=== PATIENT | male | born 1935 | race Caucasian/White ===

== ENCOUNTER 2024-10-21 21:20 | Inpatient (IN) | payer BC ==
[~2024-10-21] VITALS: Ht 188 cm; Wt 84.1 kg
[2024-10-21 21:42] LABS: BASOPHILS % (AUTO) 0.2 % (0-1); EOSINOPHILS % (AUTO) 0 % (0-6); HEMATOCRIT 33.6 % (42.0-52.0); HEMOGLOBIN 11.1 g/dl (14.0-17.9); LYMPHOCYTES # (AUTO) 0.6 X10'3 (1.1-4.8); LYMPHOCYTES % (AUTO) 4.5 % (21-51); MEAN CORPUSCULAR HEMOGLOBIN 29.4 PG (27.0-31.0); MEAN CORPUSCULAR HGB CONC 33.2 g/dL (33.0-36.5); MEAN CORPUSCULAR VOLUME 88.6 FL (78-98); MEAN PLATELET VOLUME 6.9 FL (7.4-10.4); MONOCYTES % (AUTO) 7.2 % (2-12); NEUTROPHILS # (AUTO) 12.8 X10'3 (1.8-7.7); NEUTROPHILS % (AUTO) 88.1 % (42-75); PLATELET COUNT 355 X10'3 (140-440); RED BLOOD COUNT 3.79 X10'6 (4.70-6.10); RED CELL DISTRIBUTION WIDTH 19.3 % (11.5-14.5); WHITE BLOOD COUNT 14.5 X10'3 (4.5-11.0)
[2024-10-21] MEDS: normal saline 1000ml 1,000 ML IV ONE (21:49)
[2024-10-21 21:54] LABS: ALANINE AMINOTRANSFERASE 18 U/L (12-78); ALBUMIN 2.1 G/DL (3.4-5.0); ALBUMIN/GLOBULIN RATIO 0.4 (1.1-1.5); ALKALINE PHOSPHATASE 161 IU/L (46-116); ANION GAP 12 (8-16); ASPARTATE AMINO TRANSFERASE 19 U/L (10-37); BILIRUBIN,TOTAL 1.2 MG/DL (0.1-1.0); BLOOD UREA NITROGEN 6 MG/DL (7-18); BUN/CREATININE RATIO 5.2 (10.0-20.0); CALCIUM 8.7 MG/DL (8.5-10.1); CHLORIDE 97 MMOL/L (99-107); CREATININE 1.15 MG/DL (0.60-1.10); GLUCOSE 159 MG/DL (70-104); POTASSIUM 3.8 MMOL/L (3.5-5.1); SODIUM 134 MMOL/L (135-145); TOTAL CARBON DIOXIDE 25.4 MMOL/L (24-32); eCRCL 49 ML/MIN; eGFR 60 ML/MIN
[2024-10-21] MEDS: haloperidol lactate 5mg/ml inj IM ONE (22:07)
[2024-10-21] MEDS: CefTRIAXone/D5W-Rocephin 1gm 50 ML IV ONE (22:43)
[2024-10-22 00:38] LABS: BILIRUBIN,URINE NEGATIVE (Neg); CLARITY,URINE CLEAR (Clear); COLOR,URINE YELLOW (Yellow); GLUCOSE, URINE NEGATIVE (Neg); KETONES,URINE NEGATIVE (Neg); LEUKOCYTE ESTERASE ,URINE NEGATIVE (Neg); NITRITES, URINE NEGATIVE (Neg); OCCULT BLOOD,URINE TRACE-INTACT (Neg); PROTEIN,URINE NEGATIVE (Neg)
[2024-10-22 00:40] LABS: UA COLLECTION TYPE STRAIGHT CATH
[2024-10-22 00:59] LABS: BACTERIA,URINE 2+ /HPF (Neg); MUCUS STRANDS MODERATE /LPF (Neg); SQUAMOUS EPITHELIAL CELL,UR FEW /LPF (FEW); WBC,URINE 0-4 /HPF (0-4)
[2024-10-22] MEDS ORDERED: acetaminophen 325mg tablet PO PRN ×4 (08:40→10:05)
[2024-10-22] MEDS ORDERED: potassium Cl 20 mEq SR tablet PO PRN (08:40)
[2024-10-22] MEDS ORDERED: magnesium sulf-water 2g/50mL 50 ML IV PRN (08:40)
[2024-10-22] MEDS ORDERED: potassium Cl 40MEQ/1/2NS 520ml 520 ML IV PRN (08:40)
[2024-10-22] MEDS ORDERED: mag hydrox/Alum hydrox/simeth 30ml oral suspension PO PRN ×3 (08:40→10:05)
[2024-10-22] MEDS ORDERED: magnesium Cl slow-release 64mg tablet PO PRN (08:40)
[2024-10-22] MEDS ORDERED: magnesium sulf-water 4G/100mL 100 ML IV PRN (08:40)
[2024-10-22] MEDS ORDERED: magnesium hydroxide 30ml (MOM) UD suspension PO PRN ×3 (08:40→10:05)
[2024-10-22] MEDS ORDERED: ondansetron/PF 4mg/2ml inj IV PRN ×2 (08:50→10:05)
[2024-10-22] MEDS ORDERED: bisacodyl 10mg suppository rectal RC PRN (10:05)
[2024-10-22] MEDS ORDERED: morphine 2 MG/ML inj. syringe IV PRN ×2 (10:05)
[2024-10-22] MEDS ORDERED: ondansetron 4mg rapidly disintigrating tab PO PRN (10:05)
[2024-10-22] MEDS ORDERED: acetaminophen 650mg rectal suppository RC PRN (10:05)
[2024-10-22] MEDS ORDERED: ipratropium/albuterol 3ml nebule NEB PRN (10:05)
[2024-10-22] MEDS ORDERED: diphenhydrAMINE 25mg capsule PO PRN (10:05)
[2024-10-22] MEDS: normal saline 1000ml 1,000 ML IV SCH (10:25)
[2024-10-22 11:31] LABS: APTT 23 SECONDS (22-32); INR 1.1 INR; PROTHROMBIN TIME 11.4 SECONDS (9.0-12.0)
[2024-10-22 11:33] LABS: D-DIMER 1.18 MG/L FEU (0-0.50)
[2024-10-22 11:34] LABS: CREATINE KINASE 169 U/L (39-308); LIPASE 7 U/L (16-77); PHOSPHORUS 2.5 MG/DL (2.3-4.5); PRO BRAIN NATRIURETIC PEPTIDE 1361 PG/ML (0-450); THYROID STIMULATING HORMONE 2.25 ulU/ml (0.34-4.50)
[2024-10-22 12:37] VITALS: BP 130/56; PULSE 88; RESP 16; TEMP 98.9; O2SAT 95
[2024-10-22 12:38] VITALS: PULSE 79; RESP 18; O2SAT 90
[2024-10-22 14:38] LABS: HEMOGLOBIN A1C 5.5 % (4.5-6.2)
[2024-10-22 15:00] VITALS: BP 151/81; PULSE 88; RESP 19; TEMP 98.2; O2SAT 99
[2024-10-22 19:20] VITALS: PULSE 83; RESP 18; O2SAT 99
[2024-10-22 20:00] VITALS: RESP 17; O2SAT 92
[2024-10-22] MEDS: K and/or MAG REPLACEMENT MC SCH (20:00)
[2024-10-22] MEDS: heparin, porcine 5000 units/ml vial SQ SCH (20:00)
[2024-10-22] MEDS ORDERED: docusate sod 100mg capsule PO SCH ×2 (20:00)
[2024-10-22] MEDS ORDERED: temazepam 15mg capsule PO PRN (21:00)
[2024-10-22 22:00] VITALS: BP 151/81; PULSE 91; RESP 17; TEMP 97.5; O2SAT 99
[2024-10-22] MEDS: docusate sod 100mg capsule PO SCH (22:01)
[2024-10-22] MEDS: erythromycin ophthalmic ointment 1gm tube EACHEYE SCH (22:07)
[2024-10-23] VITALS (8 sets, daily range): BP systolic 122–161; BP diastolic 62–81; PULSE 80–101; RESP 15–20; TEMP 97.3–98.2; O2SAT 93–98
[2024-10-23 08:42] LABS: ALANINE AMINOTRANSFERASE 14 U/L (12-78); ALBUMIN 1.7 G/DL (3.4-5.0); ALBUMIN/GLOBULIN RATIO 0.4 (1.1-1.5); ALKALINE PHOSPHATASE 130 IU/L (46-116); ANION GAP 9 (8-16); ASPARTATE AMINO TRANSFERASE 27 U/L (10-37); BILIRUBIN,TOTAL 0.5 MG/DL (0.1-1.0); BLOOD UREA NITROGEN 5 MG/DL (7-18); BUN/CREATININE RATIO 6.8 (10.0-20.0); CHLORIDE 100 MMOL/L (99-107); CHOL/HDL RATIO 1.7 (0.00-4.99); CHOLESTEROL 85 MG/DL (0-200); CREATININE 0.73 MG/DL (0.60-1.10); GLUCOSE 114 MG/DL (70-104); HDL CHOLESTEROL 50 MG/DL (35-60); LDL CHOLESTEROL 27 MG/DL (50-100); POTASSIUM 3.5 MMOL/L (3.5-5.1); SODIUM 135 MMOL/L (135-145); TOTAL CARBON DIOXIDE 26.5 MMOL/L (24-32); TOTAL PROTEIN 5.7 G/DL (6.4-8.2); TRIGLYCERIDES 70 MG/DL (20-135); eCRCL 81 ML/MIN; eGFR > 90 ML/MIN
[2024-10-23] MEDS: pantoprazole 40mg Tablet.DR PO SCH (09:05)
[2024-10-23] MEDS: azithromycin/NS 500mg/250ml 250 ML IV SCH (09:07)
[2024-10-23] MEDS: CefTRIAXone/D5W-Rocephin 1gm 50 ML IV SCH (09:07)
[2024-10-23 09:22] LABS: BASOPHILS % (AUTO) 0.6 % (0-1); EOSINOPHILS # (AUTO) 0.1 X10'3 (0-0.9); EOSINOPHILS % (AUTO) 0.9 % (0-6); HEMATOCRIT 30.3 % (42.0-52.0); HEMOGLOBIN 9.9 g/dl (14.0-17.9); LYMPHOCYTES # (AUTO) 0.9 X10'3 (1.1-4.8); LYMPHOCYTES % (AUTO) 11.1 % (21-51); MEAN CORPUSCULAR HGB CONC 32.7 g/dL (33.0-36.5); MEAN CORPUSCULAR VOLUME 88.7 FL (78-98); MEAN PLATELET VOLUME 6.7 FL (7.4-10.4); MONOCYTES # (AUTO) 0.5 X10'3 (0-0.9); MONOCYTES % (AUTO) 6.1 % (2-12); NEUTROPHILS # (AUTO) 6.9 X10'3 (1.8-7.7); NEUTROPHILS % (AUTO) 81.3 % (42-75); PLATELET COUNT 232 X10'3 (140-440); RED BLOOD COUNT 3.42 X10'6 (4.70-6.10); RED CELL DISTRIBUTION WIDTH 19.5 % (11.5-14.5); WHITE BLOOD COUNT 8.4 X10'3 (4.5-11.0)
[2024-10-24] VITALS (7 sets, daily range): BP systolic 122–143; BP diastolic 58–76; PULSE 92–104; RESP 16–20; TEMP 97–98.1; O2SAT 94–97
[2024-10-24] MEDS: diazepam inj 5 MG/ML inj. IV PRN (02:24)
[2024-10-24 06:53] LABS: BASOPHILS # (AUTO) 0.1 X10'3 (0-0.2); BASOPHILS % (AUTO) 1.3 % (0-1); EOSINOPHILS # (AUTO) 0.1 X10'3 (0-0.9); EOSINOPHILS % (AUTO) 1.5 % (0-6); HEMATOCRIT 32.2 % (42.0-52.0); HEMOGLOBIN 10.6 g/dl (14.0-17.9); LYMPHOCYTES # (AUTO) 1.3 X10'3 (1.1-4.8); LYMPHOCYTES % (AUTO) 14.9 % (21-51); MEAN CORPUSCULAR HEMOGLOBIN 29.3 PG (27.0-31.0); MEAN CORPUSCULAR VOLUME 88.7 FL (78-98); MEAN PLATELET VOLUME 6.9 FL (7.4-10.4); MONOCYTES # (AUTO) 0.5 X10'3 (0-0.9); MONOCYTES % (AUTO) 6.4 % (2-12); NEUTROPHILS # (AUTO) 6.5 X10'3 (1.8-7.7); NEUTROPHILS % (AUTO) 75.9 % (42-75); PLATELET COUNT 237 X10'3 (140-440); RED BLOOD COUNT 3.63 X10'6 (4.70-6.10); RED CELL DISTRIBUTION WIDTH 19.7 % (11.5-14.5); WHITE BLOOD COUNT 8.6 X10'3 (4.5-11.0)
[2024-10-24 06:54] LABS: ALANINE AMINOTRANSFERASE 21 U/L (12-78); ALBUMIN 1.9 G/DL (3.4-5.0); ALBUMIN/GLOBULIN RATIO 0.4 (1.1-1.5); ALKALINE PHOSPHATASE 138 IU/L (46-116); ANION GAP 5 (8-16); ASPARTATE AMINO TRANSFERASE 25 U/L (10-37); BILIRUBIN,TOTAL 0.5 MG/DL (0.1-1.0); BLOOD UREA NITROGEN 4 MG/DL (7-18); BUN/CREATININE RATIO 5.7 (10.0-20.0); CALCIUM 8.4 MG/DL (8.5-10.1); CHLORIDE 103 MMOL/L (99-107); GLUCOSE 103 MG/DL (70-104); MAGNESIUM 2.2 MG/DL (1.5-2.4); POTASSIUM 3.2 MMOL/L (3.5-5.1); SODIUM 139 MMOL/L (135-145); TOTAL CARBON DIOXIDE 31.5 MMOL/L (24-32); TOTAL PROTEIN 6.3 G/DL (6.4-8.2); eCRCL 85 ML/MIN; eGFR > 90 ML/MIN
[2024-10-24 08:05] LABS: ANISOCYTOSIS 2+; PLATELET ESTIMATE NORMAL
[2024-10-24 08:06] LABS: STOMATOCYTES FEW
[2024-10-24] MEDS: potassium Cl 20 mEq SR tablet PO PRN (10:41)
[2024-10-25 02:00] VITALS: BP 121/57; PULSE 96; RESP 18; TEMP 97.2; O2SAT 92
[2024-10-25 06:39] LABS: BASOPHILS # (AUTO) 0.1 X10'3 (0-0.2); BASOPHILS % (AUTO) 1.1 % (0-1); EOSINOPHILS # (AUTO) 0.2 X10'3 (0-0.9); HEMATOCRIT 32.3 % (42.0-52.0); HEMOGLOBIN 10.7 g/dl (14.0-17.9); LYMPHOCYTES # (AUTO) 1.4 X10'3 (1.1-4.8); LYMPHOCYTES % (AUTO) 16.7 % (21-51); MEAN CORPUSCULAR HEMOGLOBIN 29.5 PG (27.0-31.0); MEAN CORPUSCULAR HGB CONC 33.1 g/dL (33.0-36.5); MEAN CORPUSCULAR VOLUME 89.1 FL (78-98); MEAN PLATELET VOLUME 6.7 FL (7.4-10.4); MONOCYTES # (AUTO) 0.6 X10'3 (0-0.9); MONOCYTES % (AUTO) 6.7 % (2-12); NEUTROPHILS # (AUTO) 6.2 X10'3 (1.8-7.7); NEUTROPHILS % (AUTO) 73.5 % (42-75); PLATELET COUNT 278 X10'3 (140-440); RED BLOOD COUNT 3.63 X10'6 (4.70-6.10); RED CELL DISTRIBUTION WIDTH 19.6 % (11.5-14.5); WHITE BLOOD COUNT 8.5 X10'3 (4.5-11.0)
[2024-10-25 07:06] LABS: ALANINE AMINOTRANSFERASE 24 U/L (12-78); ALBUMIN 1.9 G/DL (3.4-5.0); ALBUMIN/GLOBULIN RATIO 0.5 (1.1-1.5); ALKALINE PHOSPHATASE 139 IU/L (46-116); ANION GAP 4 (8-16); ASPARTATE AMINO TRANSFERASE 22 U/L (10-37); BILIRUBIN,TOTAL 0.5 MG/DL (0.1-1.0); BLOOD UREA NITROGEN 2 MG/DL (7-18); BUN/CREATININE RATIO 3.9 (10.0-20.0); CALCIUM 8.6 MG/DL (8.5-10.1); CHLORIDE 104 MMOL/L (99-107); CREATININE 0.51 MG/DL (0.60-1.10); GLUCOSE 83 MG/DL (70-104); MAGNESIUM 2.2 MG/DL (1.5-2.4); POTASSIUM 3.7 MMOL/L (3.5-5.1); SODIUM 140 MMOL/L (135-145); TOTAL CARBON DIOXIDE 31.6 MMOL/L (24-32); eCRCL 116 ML/MIN; eGFR > 90 ML/MIN
[2024-10-25] MEDS: diphenhydrAMINE 50 mg/ml inj IV PRN (07:47)
[2024-10-25 08:00] VITALS: RESP 20; O2SAT 97
[2024-10-25 18:00] VITALS: BP 142/71; PULSE 102; RESP 18; TEMP 97; O2SAT 96
[2024-10-25 20:00] VITALS: RESP 16; O2SAT 96
[2024-10-25] MEDS: HYDROcodone/acetaminophen 5mg/325mg tablet PO PRN (21:08)
[2024-10-25 22:00] VITALS: BP 133/76; PULSE 90; RESP 16; TEMP 97.5; O2SAT 96
[2024-10-26] VITALS (8 sets, daily range): BP systolic 117–152; BP diastolic 60–86; PULSE 74–101; RESP 16–18; TEMP 97.2–97.8; O2SAT 94–98
[2024-10-26 06:34] LABS: EOSINOPHILS # (AUTO) 0.1 X10'3 (0-0.9); HEMOGLOBIN 10.6 g/dl (14.0-17.9); LYMPHOCYTES # (AUTO) 1.6 X10'3 (1.1-4.8); MEAN CORPUSCULAR VOLUME 89.3 FL (78-98); MONOCYTES # (AUTO) 0.5 X10'3 (0-0.9); RED CELL DISTRIBUTION WIDTH 19.7 % (11.5-14.5)
[2024-10-26 06:37] LABS: BASOPHILS % (AUTO) 0.5 % (0-1); HEMATOCRIT 32.3 % (42.0-52.0); LYMPHOCYTES % (AUTO) 24.9 % (21-51); MEAN CORPUSCULAR HEMOGLOBIN 29.3 PG (27.0-31.0); MEAN CORPUSCULAR HGB CONC 32.8 g/dL (33.0-36.5); MEAN PLATELET VOLUME 6.5 FL (7.4-10.4); NEUTROPHILS # (AUTO) 4.1 X10'3 (1.8-7.7); NEUTROPHILS % (AUTO) 64.6 % (42-75); PLATELET COUNT 231 X10'3 (140-440); RED BLOOD COUNT 3.61 X10'6 (4.70-6.10); WHITE BLOOD COUNT 6.3 X10'3 (4.5-11.0)
[2024-10-26 07:04] LABS: ALANINE AMINOTRANSFERASE 18 U/L (12-78); ALBUMIN 1.7 G/DL (3.4-5.0); ALBUMIN/GLOBULIN RATIO 0.4 (1.1-1.5); ALKALINE PHOSPHATASE 135 IU/L (46-116); ANION GAP 5 (8-16); ASPARTATE AMINO TRANSFERASE 26 U/L (10-37); BILIRUBIN,TOTAL 0.4 MG/DL (0.1-1.0); BLOOD UREA NITROGEN 3 MG/DL (7-18); BUN/CREATININE RATIO 5.1 (10.0-20.0); CALCIUM 8.2 MG/DL (8.5-10.1); CHLORIDE 104 MMOL/L (99-107); CREATININE 0.59 MG/DL (0.60-1.10); GLUCOSE 84 MG/DL (70-104); MAGNESIUM 2.1 MG/DL (1.5-2.4); POTASSIUM 3.5 MMOL/L (3.5-5.1); SODIUM 137 MMOL/L (135-145); TOTAL CARBON DIOXIDE 28.1 MMOL/L (24-32); TOTAL PROTEIN 5.9 G/DL (6.4-8.2); eCRCL 101 ML/MIN; eGFR > 90 ML/MIN
[2024-10-26] MEDS: HYDROcodone/acetaminophen 10/325mg tab PO PRN (19:59)
[2024-10-27 02:00] VITALS: BP 111/87; PULSE 100; RESP 18; TEMP 97.6; O2SAT 100
[2024-10-27 03:24] VITALS: PULSE 98; RESP 16; O2SAT 95
[2024-10-27 06:36] LABS: BASOPHILS # (AUTO) 0.1 X10'3 (0-0.2); BASOPHILS % (AUTO) 0.8 % (0-1); EOSINOPHILS # (AUTO) 0.1 X10'3 (0-0.9); HEMATOCRIT 30.1 % (42.0-52.0); LYMPHOCYTES # (AUTO) 1.4 X10'3 (1.1-4.8); LYMPHOCYTES % (AUTO) 13.4 % (21-51); MEAN CORPUSCULAR HEMOGLOBIN 29.6 PG (27.0-31.0); MEAN CORPUSCULAR HGB CONC 33.3 g/dL (33.0-36.5); MEAN CORPUSCULAR VOLUME 88.8 FL (78-98); MEAN PLATELET VOLUME 6.6 FL (7.4-10.4); MONOCYTES # (AUTO) 0.8 X10'3 (0-0.9); MONOCYTES % (AUTO) 7.3 % (2-12); NEUTROPHILS # (AUTO) 8.1 X10'3 (1.8-7.7); NEUTROPHILS % (AUTO) 77.5 % (42-75); PLATELET COUNT 225 X10'3 (140-440); RED BLOOD COUNT 3.39 X10'6 (4.70-6.10); RED CELL DISTRIBUTION WIDTH 19.4 % (11.5-14.5); WHITE BLOOD COUNT 10.4 X10'3 (4.5-11.0)
[2024-10-27] MEDS: azithromycin 250mg tablet PO SCH (07:04)
[2024-10-27 07:07] LABS: ALANINE AMINOTRANSFERASE 22 U/L (12-78); ALBUMIN 1.6 G/DL (3.4-5.0); ALBUMIN/GLOBULIN RATIO 0.4 (1.1-1.5); ALKALINE PHOSPHATASE 133 IU/L (46-116); ANION GAP 4 (8-16); ASPARTATE AMINO TRANSFERASE 34 U/L (10-37); BILIRUBIN,TOTAL 0.3 MG/DL (0.1-1.0); BLOOD UREA NITROGEN 5 MG/DL (7-18); BUN/CREATININE RATIO 6.4 (10.0-20.0); CALCIUM 8.5 MG/DL (8.5-10.1); CHLORIDE 106 MMOL/L (99-107); CREATININE 0.78 MG/DL (0.60-1.10); GLUCOSE 114 MG/DL (70-104); SODIUM 140 MMOL/L (135-145); TOTAL CARBON DIOXIDE 29.8 MMOL/L (24-32); TOTAL PROTEIN 5.4 G/DL (6.4-8.2); eCRCL 76 ML/MIN; eGFR > 90 ML/MIN
[2024-10-27 07:17] VITALS: BP 131/70; PULSE 100; RESP 18; TEMP 97.2; O2SAT 94
[2024-10-27 08:00] VITALS: RESP 18; O2SAT 94
[2024-10-27 11:37] VITALS: BP 125/59; PULSE 105; RESP 17; TEMP 98.8; O2SAT 96
== END 2024-10-27 14:18 | disposition home or self-care (01) | DRG 871 ==
LOC: ER 21:20 → ED HOLD 10-22 08:41 → UNDOADMIN 10-22 08:41 → ED HOLD 10-22 08:53 → PCU 3S 10-22 12:23 → ED HOLD 10-22 12:23 → PCU 3S 10-22 14:02
PROVIDERS: ADMIT Family Medicine; ATTEND Family Medicine
DX: A41.9 Sepsis, unspecified organism (principal); G93.41 Metabolic encephalopathy; J96.01 Acute respiratory failure with hypoxia; N17.0 Acute kidney failure with tubular necrosis; E87.1 Hypo-osmolality and hyponatremia; R22.0 Localized swelling, mass and lump, head; I10 Essential (primary) hypertension; E88.09 Other disorders of plasma-protein metabolism, not elsewhere classified; Z78.1 Physical restraint status; Z91.199 Patient's noncompliance with other medical treatment and regimen due to unspecified reason
CPT/HCPCS: 36415; 70450; 71045; 71250; 74176; 80053; 80061; 81001; 82140; 82550; 83036; 83605; 83690; 83735; 83880; 84100; 84145; 84443; 84484; 85008; 85025; 85379; 85610; 85730; 87040; 93005; 93306; 94760; 97110; 97116; 97162; 97530; 99285; A4615; A6223; A6250; A6253; A6258; A6449; A6590; C1758; G0378; J0456; J0696; J1200; J1630; J1644; J3360; J7030